=== PATIENT | female | born 1990 | race Caucasian/White ===

== ENCOUNTER 2023-10-27 12:43 | Emergency (ER) | payer MEDICAID ==
[~2023-10-27] VITALS: Ht 157.4 cm; Wt 108.9 kg
== END 2023-10-27 14:23 | disposition home or self-care (01) ==
LOC: ED 12:43
DX: S92.411A Displaced fracture of proximal phalanx of right great toe, initial encounter for closed fracture (principal); Z88.0 Allergy status to penicillin; W22.01XA Walked into wall, initial encounter; Y93.01 Activity, walking, marching and hiking; Y92.89 Other specified places as the place of occurrence of the external cause; Y99.8 Other external cause status